=== PATIENT | male | born 1960 | race Caucasian/White ===

== ENCOUNTER → 2018-05-11 | Outpatient (CLI) | payer OTHER | END | disposition home or self-care (01) | LOC: SONOGRAMA 13:53 → MAMO-SONO 14:15 | DX: M25.571 Pain in right ankle and joints of right foot (principal); M70.21 Olecranon bursitis, right elbow ==

== ENCOUNTER 2020-02-07 08:54 | Emergency (ER) | payer OTHER ==
[~2020-02-07] VITALS: Ht 172.7 cm; Wt 92.1 kg
== END 2020-02-07 12:21 | disposition home or self-care (01) ==
LOC: ER 08:54
DX: R42 Dizziness and giddiness (principal)